=== PATIENT | male | born 1965 | race African-American/Black ===

== ENCOUNTER → 2020-03-11 | Outpatient (CLI) | payer OTHER ==
--- NOTE | 2020-03-11 12:18 | RAD ---
INDICATION: Low back pain COMPARISON: None. IMPRESSION: Lumbar spine: 2 views obtained. No evidence of acute fracture or dislocation. There is some evidence of degenerative changes the spine including mild osteophyte formation at vertebral body endplates as well as facet hypertrophy. Electronically signed by: Brandon Buchanan MD (03/11/2020 12:16 PM) [id number]
--- NOTE | 2020-03-11 15:04 | RAD ---
EXAM: XR KNEE_RT 1-2 VIEWS 03/11/2020 9:59 AM CLINICAL INDICATION: Right knee pain, back pain COMPARISON: None TECHNIQUE: 2 views of the right knee FINDINGS: No acute fracture. Alignment is normal. There is very mild medial compartment narrowing. N o significant osteophyte formation. No joint effusion or soft tissue abnormality. IMPRESSION: Very mild medial compartment degenerative changes. Electronically signed by: Eliane Cuadra MD (03/11/2020 3:02 PM) [id number]
== END ==
LOC: RAD 09:46
PROVIDERS: ATTEND Surgery
DX: M17.11 Unilateral primary osteoarthritis, right knee (principal); M47.816 Spondylosis without myelopathy or radiculopathy, lumbar region; M25.78 Osteophyte, vertebrae
CPT/HCPCS: 72100; 73560